=== PATIENT | female | born 1940 | race Caucasian/White ===

== ENCOUNTER 2016-05-07 07:08 | Emergency (ER) | payer OTHER ==
[2016-05-07 08:04] LABS: URINE MICRO REVIEW NEEDED? NO; URINE SOURCE CLEAN CATCH
[2016-05-07 08:13] LABS: BILIRUBIN URINE NEGATIVE (NEGATIVE); BLOOD URINE TRACE (NEGATIVE); COLOR YELLOW; GLUCOSE URINE NEGATIVE (NEGATIVE); LEUKOCYTES URINE TRACE (NEGATIVE); NITRITE URINE NEGATIVE (NEGATIVE); PH URINE 6.5; PROTEIN URINE 30 mg/dL (NEGATIVE); SP GRAVITY URINE 1.021; TURBIDITY URINE CLEAR (CLEAR); UROBILINOGEN URINE NORMAL (NORMAL)
[2016-05-07 08:14] LABS: UR EPITHELIAL CELLS <10 /HPF (<10); URINE BACTERIA NEGATIVE /HPF; URINE CULTURE NEEDED? YES
[2016-05-07 09:28] LABS: MANUAL DIFF NEEDED? NO
[2016-05-07 09:32] LABS: BASO% 0.5 % (0.0-0.8); EOS# 0.17 X1000 (0.0-0.7); EOS% 2.2 % (0.0-10.0); HEMATOCRIT 45.7 % (37.0-47.0); HEMOGLOBIN 15.1 g/dL (12.0-16.0); IMM GRAN# 0.02 X1000 (0.0-0.04); IMM GRAN% 0.3 % (0.0-0.5); LYMPH# 1.74 X1000 (1.2-3.4); LYMPH% 22.4 % (20.5-51.1); MCH 31.1 PG (27-31); MCV 94.2 FL (81-99); MONO# 0.48 X1000 (0.11-0.59); MONO% 6.2 % (1.7-9.3); MPV 11.6 FL (7.4-10.4); NEUT% 68.4 % (42.2-75.2); PLT 153 X1000 (130-400); RBC 4.85 XMIL (4.2-5.4)
[2016-05-07 09:59] LABS: ALBUMIN 4.1 g/dL (3.5-5.0); CALCIUM 9.1 mg/dL (8.8-10.2); POTASSIUM 4.1 mmol/L (3.5-5.1); TOTAL BILIRUBIN 0.69 mg/dL (0.20-1.00)
[2016-05-07] MEDS ORDERED: ZOFRAN ONE (10:56)
[2016-05-07] MEDS ORDERED: MORPHINE ONE (10:56)
[2016-05-07] MEDS ORDERED: ZOFRAN IV ONE (11:03)
[2016-05-07] MEDS ORDERED: MORPHINE IV ONE ×2 (11:03→13:34)
--- NOTE | 2016-05-07 11:46 | Diag Imaging Result Document ---
PROCEDURE NAME: CT ABD/PELVIS W/ IV CONT ONLY - 05/07/2016 CT ABDOMEN AND PELVIS WITH IV CONTRAST ONLY: Exam performed with intravenous contrast only per request of the referring provider. A dose-reduction protocol was used. COMPARISON: No comparison exam. FINDINGS: The visualized lung bases appear clear. There are no substantial abnormalities of the liver, spleen, or pancreas identified. There is a venous structure which courses adjacent to the left adrenal gland and mildly limits detail. There is no adrenal mass identified however. The gallbladder is surgically absent. There is a 1 cm stone in the left renal pelvis. There is no substantial hydronephrosis identified. There is mild thickening of the gr of the left renal pelvis which may relate to chronic inflammation or to early pyelonephritis. There is an additional 4 mm nonobstructing stone in the left kidney. There are scattered small low-density lesions in the bilateral kidneys which may represent cyst. There is no discrete solid renal mass identified. There are no substantially enlarged lymph nodes identified. There is no aortic aneurysm seen. There are atherosclerotic calcifications noted. There are lumbar spine degenerative changes also noted. There is no evidence of bowel obstruction. What appears to represent the appendix shows no obvious inflammation. There is no pericecal inflammation identified. There is colonic diverticulosis which is most extensive at the sigmoid. There is no diverticulitis identified. There is no abscess identified. There is no free air. There is no substantial free fluid. Images of the pelvis, otherwise, show postsurgical changes of hysterectomy. There is no abnormal pelvic mass or fluid collection identified. IMPRESSION: 1. 1 cm stone in left renal pelvis. No substantial hydronephrosis. Mild thickening of gr of left renal pelvis which may relate to chronic inflammation or early acute pyelonephritis. Additional 4 mm nonobstructing stone in the left kidney. 2. Small low-density lesions in the bilateral kidneys which may represent cysts. 3. No bowel obstruction. No indication of appendicitis. 4. Colonic diverticulosis. No evidence of diverticulitis. 5. No abscess. No free air. MTDD
--- NOTE | 2016-05-07 12:09 | PROVIDER DOCUMENTATION ---
HPI-General Adult - General Source: patient - History of Present Illness -Gen Adult Nature of Presenting Problems: 75 y/o female presents to the ER with complaint of left flank pain that started this am. Pt states the pain starts in the back and radiates to front. Pt denies fever, chills and chest pain. Pt does have a history of kidney stones. Location of Pain/Injury: reports: abdomen (left), back (left) Pain Radiation: reports: flank (L) Quality of Pain: reports: aching Onset/Duration: reports: this morning Timing: reports: still present Associated Symptoms: denies: chest pain, fever/chills, vomiting <Elodia Mancini - Last Filed: 05/07/16 13:37> - History of Present Illness -Gen Adult HPI Comments: No chest pain or shortness of breath, no vaginal discharge or recent abx <Dyllan Dyer - Last Filed: 05/07/16 16:58> - General Chief Complaint: Flank Pain Stated Complaint: left side rib,back pain Time Seen by Provider: 05/07/16 07:30 Allergies/Adverse Reactions: Patient Allergies Allergy/AdvReac Type Severity Reaction Status Date / Time Penicillins Allergy RASH Verified 05/07/16 07:39 Sulfa (Sulfonamide Allergy RASH Verified 05/07/16 07:39 Antibiotics) Home Medications: Home Medication List Medication Instructions Recorded Confirmed Last Taken Type Carvedilol 3.125 mg PO DAILY 05/07/16 05/07/16 05/06/16 18:00 History Hydrocodone/Acetaminophen [Vicodin 1 each PO TID #10 tablet 05/07/16 Unknown Rx 5-300 mg Tablet] Levothyroxine [Synthroid] 0.1 microgm PO DAILY 05/07/16 05/07/16 05/06/16 08:00 History Ondansetron HCl [Zofran] 4 mg PO TID #5 tablet 05/07/16 Unknown Rx Prednisone 10 mg PO BID #10 tablet 05/07/16 Unknown Rx Simvastatin 20 mg PO DAILY 05/07/16 05/07/16 05/06/16 08:00 History Valacyclovir HCl [Valacyclovir] 1,000 mg PO TID #21 tablet 05/07/16 Unknown Rx Review of Systems - Adult - REVIEW OF SYSTEMS - ADULT Constitutional: denies: chills, fever Gastrointestinal: reports: nausea. denies: diarrhea, vomiting Genitourinary: reports: flank pain (left) All Other Systems: Reviewed and Negative <Elodia Mancini - Last Filed: 05/07/16 13:37> Past History - Adult - PAST MEDICAL HISTORY-ADULT Review of Records: reports: Nursing Assessment Review, Medications Reviewed - IMMUNIZATION STATUS Childhood Immunizations: See Nurse Assessment Flu Vaccine: See Nurse Assessment <Elodia Mancini - Last Filed: 05/07/16 13:37> Physical Exam-General - CONSTITUTIONAL General Appearance: alert, mild distress - EYES Eyes: PERRL/EOMI, pink conjunctivae - HEAD, EARS, NOSE, MOUTH & THROAT HENMT: normocephalic/atraumatic, normal ENT inspection - NECK Neck: supple, normal inspection - RESPIRATORY Respiratory: no respiratory distress, no accessory muscle use - CARDIOVASCULAR Cardiovascular: normal peripheral pulses, regular rate, rhythm - MUSCULOSKELETAL Back Exam: no CVA tenderness, no vertebral tenderness Extremity: normal gait, normal inspection - SKIN Integumentary: normal color, other (herpes on back) - NEUROLOGIC Neurologic: grossly normal, no motor/sensory deficits - PSYCHIATRIC Psych/Mental Status: normal mood/affect, normal thought content, normal thought process, oriented x 3 <Elodia Mancini - Last Filed: 05/07/16 13:37> - SKIN Integumentary: zoster-like rash <Dyllan Dyer - Last Filed: 05/07/16 16:58> Progress - CT/MRI 1 CT Study: Abdomen Impression: Abnormal CT Results: 1 cm stone in left pelvis, 4 mm nonobstructing stone in left kidney <Elodia Mancini - Last Filed: 05/07/16 13:37> - PLAN OF CARE/RESULTS Progress/Plan/Lab Results: Patient revisited multiple times while in Ed Made aware of laboratory results, CT imaging and clinical diagnosis. All questions answered and patient feeling better after medications. <Dyllan Dyer - Last Filed: 05/07/16 16:58> Departure <Elodia Mancini - Last Filed: 05/07/16 13:37> <Dyllan Dyer - Last Filed: 05/07/16 16:58> - Departure DIAGNOSIS: Renal colic on left side, Kidney stone on left side, Jaqueline Disposition: HOME 01 Condition: Good Additional Instructions: ED Follow Up Instructions: You have been treated by a care provider in the Emergency Department. These instructions are being provided to you so you can have an understanding of how to care for yourself upon discharge. Upon discharge from the Emergency Department, you are responsible for making arrangements for follow-up care by a physician of your choice. Take all prescribed medications as directed. Return to the Emergency Department immediately for any new or worsening symptoms. You may call the Physician Referral phone number at [phone] to obtain a list of Physicians who are taking new patients. Prescriptions: Prednisone 10 mg PO BID #10 tablet Valacyclovir HCl [Valacyclovir] 1,000 mg PO TID #21 tablet Hydrocodone/Acetaminophen [Vicodin 5-300 mg Tablet] 1 each PO TID #10 tablet Ondansetron HCl [Zofran] 4 mg PO TID #5 tablet Referrals: Pao Ross MD [Primary Care Provider] - Instructions: Shingles, [id number], Kidney Stones, [id number] Attestation - Scribe Verification/Attestation Scribe:: Elodai Mancini Acting as Scribe for:: Dyllan Dyer Scribe documention review:: This chart was documented by a scribe and accurately reflects the service the provider performed and the decisions made by the provider. <Elodia Mancini - Last Filed: 05/07/16 13:37> - Scribe Verification/Attestation Scribe:: Elodia Mancini Scribe documention review:: This chart was documented by a scribe and accurately reflects the service the provider performed and the decisions made by the provider. <Dyllan Dyer - Last Filed: 05/07/16 16:58> Physician Attestation - Physician Attestation I, the provider, attest to the following statement:: Dyllan Dyer Physician documentation Attestation:: This documentation recorded by the scribe accurately reflects the service I personally performed and the decisions made by me. <Dyllan Dyer - Last Filed: 05/07/16 16:58>
[2016-05-07 13:31] VITALS: BP 172/69
== END 2016-05-07 13:41 | disposition home or self-care (01) ==
LOC: ED 07:08
DX: N20.0 Calculus of kidney (principal); B02.9 Zoster without complications; K57.90 Diverticulosis of intestine, part unspecified, without perforation or abscess without bleeding; R10.9 Unspecified abdominal pain; M54.9 Dorsalgia, unspecified; R07.81 Pleurodynia; R11.0 Nausea; Z79.899 Other long term (current) drug therapy; Z87.442 Personal history of urinary calculi
CPT/HCPCS: 74177; 80053; 81001; 83690; 85025; 87077; 87088; 87186; 96374; J2270; J2405; Q9967

== ENCOUNTER 2016-05-13 09:06 | Emergency (ER) | payer OTHER ==
[2016-05-13 10:40] LABS: URINE SOURCE CATH
[2016-05-13 11:04] LABS: BILIRUBIN URINE NEGATIVE (NEGATIVE); BLOOD URINE MODERATE (NEGATIVE); CLARITY CLEAR (CLEAR); COLOR YELLOW; GLUCOSE URINE NEGATIVE (NEGATIVE); LEUKOCYTES URINE SMALL (NEGATIVE); NITRITE URINE NEGATIVE (NEGATIVE); PH URINE 5.5; PROTEIN URINE TRACE mg/dL (NEGATIVE); SP GRAVITY URINE 1.025; UROBILINOGEN URINE 0.2 EU/dL (0.2-1.0)
[2016-05-13 11:05] LABS: URINE CULTURE NEEDED? YES; URINE EPITHELIAL CELLS >10 /HPF (<10); URINE WBC TNTC /HPF (<10)
--- NOTE | 2016-05-13 11:24 | Diag Imaging Result Document ---
PROCEDURE NAME: KUB ABDOMEN - 05/13/2016 ABDOMEN SINGLE-VIEW: FINDINGS: There is stool throughout the colon. The bowel loops are not dilated. The gallbladder has been removed. There is [id number] scoliosis with degenerative spine changes. No organomegaly. There is a mid abdominal calcification on the left shown to be a renal pelvic stone on a recent CT. IMPRESSION: 1. Constipation. 2. Left renal stone. [facility]
--- NOTE | 2016-05-13 11:43 | PROVIDER DOCUMENTATION ---
HPI-Rash/Wound/ReCheck - General Source: patient, family - History of Present Illness-Dermatology Quality: reports: painful Severity: reports: moderate Onset/Duration: reports: 6 days ago Timing: reports: still present Locality of Occurance: Home Similar Symptoms Previously?: Yes Recently seen or treated by another doctor?: Yes - Recheck Treated days ago.: 6 Antibiotics given: prescription Symptoms since procedure:: reports: pain - General Chief Complaint: Return/Recheck Stated Complaint: RECHECK Time Seen by Provider: 05/13/16 11:00 Allergies/Adverse Reactions: Allergies Allergy/AdvReac Type Severity Reaction Status Date / Time Penicillins Allergy RASH Verified 05/13/16 11:21 Sulfa (Sulfonamide Allergy RASH Verified 05/13/16 11:21 Antibiotics) Home Medications: Home Medication List Medication Instructions Recorded Confirmed Last Taken Type Carvedilol 3.125 mg PO DAILY 05/07/16 05/13/16 05/13/16 History Hydrocodone/Acetaminophen [Vicodin 1 each PO TID #10 tablet 05/07/16 05/13/16 Rx 5-300 mg Tablet] Levothyroxine [Synthroid] 0.1 microgm PO DAILY 05/07/16 05/13/16 05/13/16 History Ondansetron HCl [Zofran] 4 mg PO TID #5 tablet 05/07/16 05/13/16 05/13/16 Rx Prednisone 10 mg PO BID #10 tablet 05/07/16 05/13/16 05/13/16 Rx Simvastatin 20 mg PO DAILY 05/07/16 05/13/16 05/13/16 History Valacyclovir HCl [Valacyclovir] 1,000 mg PO TID #21 tablet 05/07/16 05/13/1612/20 Rx Gabapentin E.r. [Gralise] 300 mg PO DAILY #14 tablet 05/13/16 Unknown Rx Oxycodone HCl/Acetaminophen 1 each PO Q4-6H PRN PRN #30 tablet 05/13/16 Unknown Rx [Percocet 7.5-325 mg Tablet] Tamsulosin [Flomax] 0.4 mg PO DAILY #14 capsule 05/13/16 Unknown Rx - History of Present Illness-Dermatology Nature of Presenting Problem: Pt is a 75 yof that presents to er with cc of recheck. Pt reports she was seen on 05/07/16 and was diagnosed with shingles and renal pelvic stone and sent home on medications. Pt reports that she continues to hurt with the pain medications and that she is all most out and wont have enough to make it through the weekend. Pt reports she couldn't tell if she was hurting from the shingles or the stone. (Pa Ross) Review of Systems - Adult - REVIEW OF SYSTEMS - ADULT Constitutional: denies: chills, fever, fatique Eyes: reports: no symptoms reported Ears, Nose, Mouth & Throat: denies: ear pain, sinus problem, throat pain Cardiovascular: denies: chest pain, irregular heart rate, orthopnea, syncope Respiratory: reports: no symptoms reported Gastrointestinal: reports: abdominal pain. denies: diarrhea, nausea, vomiting Genitourinary: reports: flank pain. denies: dysuria, discharge, frequent UTI's , hematuria, hesitency, urinary retention, urgency Musculoskeletal: reports: no symptoms reported Integumentary: reports: no symptoms reported Neurological: reports: no symptoms reported Psychiatric: reports: no symptoms reported Endocrine: reports: no symptoms reported Hematologic/Lymphatic: reports: no symptoms reported Allergic/Immunologic: reports: no symptoms reported All Other Systems: Reviewed and Negative Past History - Adult - PAST MEDICAL HISTORY-ADULT Review of Records: reports: Nursing Assessment Review, Medications Reviewed Major Childhood Illnesses: reports: denies history Cardiovascular: reports: HTN, hyperlipidemia - IMMUNIZATION STATUS Childhood Immunizations: See Nurse Assessment Flu Vaccine: See Nurse Assessment - SOCIAL HISTORY Smoking: denies Substance Use: none/never Physical Exam-General - PHYSICAL EXAM-ADULT Initial Vital Signs Reviewed: Yes - CONSTITUTIONAL General Appearance: appears well, alert, mild distress - EYES Eyes: PERRL/EOMI - HEAD, EARS, NOSE, MOUTH & THROAT HENMT: moist mucous membranes, TMs normal, pharynx normal - RESPIRATORY Respiratory: chest non-tender, lungs clear, normal breath sounds, no pleuratic chest pain, no respiratory distress, no accessory muscle use - CARDIOVASCULAR Cardiovascular: regular rate, rhythm, no edema, no gallop, no JVD, no murmur - GASTROINTESTINAL (ABDOMEN) Abdominal Exam: normal bowel sounds, soft, no organomegaly, no pulsatile mass, tenderness (ttp llq) - MUSCULOSKELETAL Back Exam: other (left lower back shingles rash noted radiating to left mid abd) Extremity: normal range of motion, non-tender - SKIN Integumentary: normal color, normal turgor, warm/dry, rash (shingles rash left lower back to mid abd) - PSYCHIATRIC Psych/Mental Status: normal mood/affect, normal thought content, normal thought process, oriented x 3 Progress - XRAY 1 XRAY: Bilateral XRAY Study: Chest Impression: Abnormal (constipation; left renal pelvic stone) - PLAN OF CARE/RESULTS Progress/Plan/Lab Results: Orders Category Date Time Status KUB ABDOMEN [RAD] Stat Exams 05/13/16 09:32 Draft URINE CULTURE [RM] Routine Lab 05/13/16 11:07 Received Vital Signs - 24 hr 05/13/16 09:25 Temperature 98.1 F Pulse Rate 74 Respiratory 18 Rate Blood Pressure 164/72 O2 Sat by Pulse 99 Oximetry Laboratory Tests 05/13/16 05/13/16 09:36 10:28 Urine Source CATH Cancelled Urine Color YELLOW Cancelled Urine Clarity CLEAR Urine Turbidity Cancelled Urine pH 5.5 Cancelled Ur Specific [place] 1.025 Cancelled Urine Protein TRACE A Cancelled Ur Glucose (Stick) Cancelled Urine Ketones NEGATIVE Ur Ketones (Stick) Cancelled Urine Blood MODERATE A Cancelled Urine Nitrite NEGATIVE Cancelled Urine Bilirubin NEGATIVE Cancelled Urine Urobilinogen 0.2 Urobilinogen Dipstick Cancelled Urine Leukocytes Cancelled Urine WBC (Auto) Cancelled Urine RBC (Auto) Cancelled U Epithel Cells (Auto) Cancelled Urine Bacteria (Auto) Cancelled Urine Microscopic RBC 10-20 A Urine WBC SMALL A Urine Microscopic WBC TNTC A Ur Epithelial Cells >10 A Urine Bacteria 4+ Urine Glucose NEGATIVE (Pa Ross) Departure - Departure Time of Disposition Order: 11:47 Certified Medical Emergency: Emergent - Departure DIAGNOSIS: Kidney stone on left side Shingles Qualifiers: Herpes zoster complications: without complications Qualified Code(s): B02.9 - Zoster without complications Disposition: HOME 01 Condition: Stable Additional Instructions: Follow up with Urologist ED Follow Up Instructions: You have been treated by a care provider in the Emergency Department. These instructions are being provided to you so you can have an understanding of how to care for yourself upon discharge. Upon discharge from the Emergency Department, you are responsible for making arrangements for follow-up care by a physician of your choice. Take all prescribed medications as directed. Return to the Emergency Department immediately for any new or worsening symptoms. You may call the Physician Referral phone number at [phone] to obtain a list of Physicians who are taking new patients. Prescriptions: Tamsulosin [Flomax] 0.4 mg PO DAILY #14 capsule Gabapentin E.r. [Gralise] 300 mg PO DAILY #14 tablet Oxycodone HCl/Acetaminophen [Percocet 7.5-325 mg Tablet] 1 each PO Q4-6H PRN PRN #30 tablet PRN Reason: Pain Referrals: Pao Ross MD [Primary Care Provider] - Ash Rebolledo MD [STAFF PHYSICIAN] - Instructions: Contact Precautions, [id number], Shingles, Iycr-wv-Hnwa Attestation - Scribe Verification/Attestation Scribe:: Pa Ross Acting as Scribe for:: Jordan Beckham Scribe documention review:: This chart was documented by a scribe and accurately reflects the service the provider performed and the decisions made by the provider. Physician Attestation
[2016-05-13 11:59] VITALS: BP 129/56
[2016-05-13] MEDS ORDERED: NORCO-10 PO ONE (12:12)
[2016-05-13] MEDS ORDERED: NORCO-10 ONE (12:13)
== END 2016-05-13 12:27 | disposition home or self-care (01) ==
LOC: ED 09:06
DX: B02.9 Zoster without complications (principal); N20.0 Calculus of kidney; R10.9 Unspecified abdominal pain; R10.814 Left lower quadrant abdominal tenderness; R21 Rash and other nonspecific skin eruption; I10 Essential (primary) hypertension; E78.5 Hyperlipidemia, unspecified; Z79.899 Other long term (current) drug therapy
CPT/HCPCS: 74000; 81001; 87077; 87088; 87186; 99284

== ENCOUNTER 2016-05-19 06:56 | Day surgery (SDC) | payer OTHER ==
[2016-05-18 15:09] LABS: HEMATOCRIT 45.3 % (37.0-47.0); HEMOGLOBIN 14.6 g/dL (12.0-16.0); MCH 31.6 PG (27-31); MCHC 32.2 g/dL (33-37); MCV 98.1 FL (81-99); MPV 11.4 FL (7.4-10.4); RBC 4.62 XMIL (4.2-5.4)
--- NOTE | 2016-05-18 15:11 | EKG Report ---
Test Performed on : 05/18/2016 2:47:10 PM Test Reason : PAT Blood Pressure : / mmHG Vent. Rate : 069 BPM Atrial Rate : 069 BPM P-R Int : 172 ms QRS Dur : 084 ms QT Int : 406 ms P-R-T Axes : 062 067 073 degrees QTc Int : 435 ms Normal sinus rhythm. Cannot rule out Anterior infarct , age undetermined Abnormal ECG No previous ECGs available Confirmed by Jolene MARTINEZ, Dante Mccray ([id number]) on 05/18/2016 3:25:42 PM
[2016-05-18 15:20] LABS: CALCIUM 9.4 mg/dL (8.8-10.2); POTASSIUM 3.9 mmol/L (3.5-5.1)
[2016-05-18 15:50] LABS: INR 0.99; PROTIME 10.1 Seconds (9.2-11.7); PTT 23.6 Seconds (22.0-36.0)
[2016-05-19] MEDS ORDERED: PEPCID ONE (07:25)
[2016-05-19] MEDS ORDERED: LEVAQUIN 500 MG/D5W 100 ML ONE (07:25)
[2016-05-19] MEDS ORDERED: LR 1,000 ML ONE (07:25)
[2016-05-19] MEDS ORDERED: LOPRESSOR PO ONE (08:15)
[2016-05-19] MEDS ORDERED: MORPHINE ONE ×2 (09:37→10:01)
[2016-05-19] MEDS: PHENERGAN ONE ×2 (09:55→10:03)
[2016-05-19] MEDS ORDERED: ZOFRAN ONE (10:20)
[2016-05-19] MEDS ORDERED: XYLOCAINE-MPF 2% ONE (10:20)
[2016-05-19] MEDS ORDERED: DECADRON ONE (10:20)
[2016-05-19] MEDS ORDERED: MANNITOL ONE (10:20)
--- NOTE | 2016-05-19 10:36 | OPERATIVE NOTE ---
PROCEDURE DATE: 05/19/2016 SURGEON: Rj Mancini MD PREOPERATIVE DIAGNOSIS: Left renal pelvic stone. POSTOPERATIVE DIAGNOSIS: Left renal pelvic stone. PROCEDURE PERFORMED: Extracorporeal shockwave lithotripsy of left renal pelvic stone. ANESTHESIA: General via laryngeal mask. FINDINGS: An approximate 12 mm left renal pelvic stone. INDICATIONS FOR PROCEDURE: This 75-year-old female with history of renolithiasis developed severe left flank pain that was intermittent. Evaluation revealed a large left renal pelvic stone. DESCRIPTION OF PROCEDURE: After informed consent was obtained from the patient and her receiving IV antibiotics, she was taken the main OR, placed in supine position. General anesthesia via laryngeal mask was achieved. She was then placed in a proper position for left extracorporeal shockwave lithotripsy. The stone received 3000 shocks, starting at energy level 1, ramping to energy level 7, at a frequency of 90 per minute. She was given 12.5 g of mannitol at the start. At completion, the stone appeared well fragmented. She tolerated the procedure well. ESTIMATED BLOOD LOSS: Was 0. TOTAL FLUOROSCOPY TIME: Was 4 minutes and 10 seconds. She was taken to recovery room in good condition.
[2016-05-19] MEDS ORDERED: FLOMAX ONE (10:47)
[2016-05-19 11:20] VITALS: BP 152/85
[2016-05-19] MEDS ORDERED: DIPRIVAN 1% ONE (12:32)
== END 2016-05-19 11:18 | disposition home or self-care (01) ==
LOC: OPS 06:56
PROVIDERS: ATTEND Urology
DX: N20.0 Calculus of kidney (principal)
CPT/HCPCS: 80048; 85027; 85610; 85730; 93005; 93010; J1100; J2150; J2270; J2405; J2550; J7120

== ENCOUNTER 2016-09-07 06:27 | Inpatient (IN) ==
[2016-09-05 09:59] LABS: MANUAL DIFF NEEDED? NO; URINE MICRO REVIEW NEEDED? NO; URINE SOURCE CLEAN CATCH
[2016-09-05 10:01] LABS: BASO% 0.4 % (0.0-0.8); EOS# 0.14 X1000 (0.0-0.7); EOS% 2.5 % (0.0-10.0); HEMATOCRIT 41.7 % (37.0-47.0); HEMOGLOBIN 13.8 g/dL (12.0-16.0); LYMPH# 1.55 X1000 (1.2-3.4); LYMPH% 27.7 % (20.5-51.1); MCH 31.8 PG (27-31); MCHC 33.1 g/dL (33-37); MCV 96.1 FL (81-99); MONO# 0.43 X1000 (0.11-0.59); MONO% 7.7 % (1.7-9.3); MPV 11.4 FL (7.4-10.4); NEUT% 61.7 % (42.2-75.2); PLT 150 X1000 (130-400); RBC 4.34 XMIL (4.2-5.4)
[2016-09-05 10:04] LABS: BILIRUBIN URINE NEGATIVE (NEGATIVE); BLOOD URINE NEGATIVE (NEGATIVE); COLOR YELLOW; GLUCOSE URINE NEGATIVE (NEGATIVE); LEUKOCYTES URINE NEGATIVE (NEGATIVE); NITRITE URINE NEGATIVE (NEGATIVE); PROTEIN URINE NEGATIVE (NEGATIVE); SP GRAVITY URINE 1.019; TURBIDITY URINE CLEAR (CLEAR); UR EPITHELIAL CELLS <10 /HPF (<10); URINE BACTERIA 1+ /HPF; URINE RBC <10 /HPF (<10); URINE WBC <10 /HPF (<10); UROBILINOGEN URINE NORMAL (NORMAL)
[2016-09-05 10:12] LABS: INR 0.96; PTT 26.4 Seconds (22.0-36.0)
[2016-09-05 10:31] LABS: AGAP 11; BUN 10 mg/dL (8-22); CHLORIDE 108 mmol/L (98-107); COSMO 286; POTASSIUM 3.8 mmol/L (3.5-5.1); SODIUM 144 mmol/L (136-145); TCO2 25 mmol/L (25-35)
[2016-09-07] MEDS ORDERED: REGLAN ONE (06:44)
[2016-09-07] MEDS ORDERED: PEPCID ONE (06:44)
[2016-09-07] MEDS ORDERED: COLACE ONE (06:44)
[2016-09-07] MEDS ORDERED: VANCOMYCIN 1 GM/NS 1 GM/250 ML IVPB ONE (06:45)
[2016-09-07] MEDS ORDERED: LYRICA ONE (06:45)
[2016-09-07] MEDS ORDERED: LR 1,000 ML ONE (06:45)
[2016-09-07] MEDS ORDERED: XYLOCAINE-MPF 2% ONE (06:48)
[2016-09-07] MEDS ORDERED: ROBINUL ONE ×2 (06:48→08:50)
[2016-09-07] MEDS ORDERED: QUELICIN (DOSE) ONE (06:48)
[2016-09-07] MEDS ORDERED: DIPRIVAN 1% ONE (06:48)
[2016-09-07] MEDS ORDERED: SENSORCAINE 0.25%/EPI 1:200,000 ONE (06:49)
[2016-09-07] MEDS ORDERED: DURAMORPH ONE (06:49)
[2016-09-07] MEDS ORDERED: TORADOL ONE (06:49)
[2016-09-07] MEDS ORDERED: CYKLOKAPRON 1,000 MG/NS 1,000 MG/100 ML IVPB ONE (06:49)
[2016-09-07] MEDS ORDERED: SODIUM CHLORIDE 0.9% ONE (06:49)
[2016-09-07] MEDS ORDERED: EXPAREL 1.3% ONE (06:50)
[2016-09-07] MEDS ORDERED: NEOSPORIN G.U. IRRIGANT ONE (06:50)
[2016-09-07] MEDS ORDERED: STERILE WATER INJ. ONE (08:43)
[2016-09-07] MEDS ORDERED: NORCURON ONE (08:43)
[2016-09-07] MEDS ORDERED: FENTANYL ONE ×2 (08:46→09:06)
[2016-09-07] MEDS ORDERED: DECADRON ONE (08:50)
[2016-09-07] MEDS ORDERED: ZOFRAN ONE (08:50)
[2016-09-07] MEDS ORDERED: OFIRMEV 1000 MG/ISOTONIC SOLN 1,000 MG/100 ML BOTTLE ONE (08:59)
[2016-09-07] MEDS ORDERED: NEOSTIGMINE ONE (08:59)
[2016-09-07 09:12] LABS: URINE MICRO REVIEW NEEDED? NO; URINE SOURCE CATH
[2016-09-07 09:16] LABS: BILIRUBIN URINE NEGATIVE (NEGATIVE); BLOOD URINE NEGATIVE (NEGATIVE); COLOR YELLOW; GLUCOSE URINE NEGATIVE (NEGATIVE); LEUKOCYTES URINE NEGATIVE (NEGATIVE); NITRITE URINE NEGATIVE (NEGATIVE); PROTEIN URINE NEGATIVE (NEGATIVE); SP GRAVITY URINE 1.013; TURBIDITY URINE CLEAR (CLEAR); UROBILINOGEN URINE NORMAL (NORMAL)
[2016-09-07 09:17] LABS: UR EPITHELIAL CELLS <10 /HPF (<10); URINE BACTERIA NEGATIVE /HPF; URINE RBC <10 /HPF (<10); URINE WBC <10 /HPF (<10)
[2016-09-07] MEDS ORDERED: NS 1,000 ML ONE (11:11)
--- NOTE | 2016-09-07 11:16 | Diag Imaging Result Doc PS360 ---
EXAM: SHOULDER 1 VIEW RIGHT INDICATION: r tsa TECHNIQUE: One view COMPARISON: None. FINDINGS: There has been a recent right shoulder arthroplasty. The arthroplasty hardware is in the expected position. There is no evidence of periprosthetic fracture. Surrounding soft tissues are essentially unremarkable. IMPRESSION: Satisfactory postoperative right shoulder. Electronically signed by Luis M Flowers 09/07/2016 11:14 AM
[2016-09-07] MEDS ORDERED: MORPHINE IV PRN (12:14)
[2016-09-07] MEDS ORDERED: MILK OF MAGNESIA PO PRN (12:14)
[2016-09-07] MEDS ORDERED: OXY IR PO PRN (12:14)
[2016-09-07] MEDS ORDERED: ZOFRAN PO PRN (12:14)
[2016-09-07] MEDS ORDERED: NS 1,000 ML IV SCH (13:00)
[2016-09-07] MEDS ORDERED: CYKLOKAPRON 1,000 MG in NS 100 ML IV ONE (15:00)
[2016-09-07] MEDS: TYLENOL PO SCH ×3 (15:27→21:03)
[2016-09-07] MEDS: ZOCOR PO SCH (17:01)
[2016-09-07] MEDS: SYNTHROID PO SCH (17:01)
[2016-09-07] MEDS: CENTRUM SILVER PO SCH (17:02)
[2016-09-07] MEDS: COREG PO SCH (17:02)
[2016-09-07] MEDS ORDERED: VANCOMYCIN 1 GM/NS 1 GM/250 ML IVPB IV ONE (20:00)
[2016-09-07] MEDS: PERIDEX MT SCH (21:03)
[2016-09-07] MEDS: COLACE PO SCH (21:04)
[2016-09-08] MEDS: TYLENOL PO SCH ×2 (02:50→09:45)
[2016-09-08 06:09] LABS: HEMATOCRIT 36.1 % (37.0-47.0); HEMOGLOBIN 11.6 g/dL (12.0-16.0)
--- NOTE | 2016-09-08 06:38 | PROGRESS NOTE ---
DATE: 09/08/2016 SUBJECTIVE: The patient is a pleasant 75-year-old female who is 1 day status post right reverse shoulder arthroplasty. The patient rested well through the night, and has no complaints this morning. OBJECTIVE: On physical exam, patient's wound looks good. There are no signs or symptoms of infection. She is neurovascularly throughout, has good manager fleet strength. Her hemoglobin is 11.6, hematocrit is 36.1. IMPRESSIONS: Postoperative day #1, status post right reverse shoulder arthroplasty. PLAN: At this point, will Hep-Lock her IV and discontinue her Rizvi. We will also change her dressing. Will plan on discharging home, and patient will arrange for home physical therapy. cc: Ajit Appiah MD
[2016-09-08 06:46] LABS: AGAP 12; BUN 13 mg/dL (8-22); CALCIUM 8.1 mg/dL (8.8-10.2); CHLORIDE 106 mmol/L (98-107); COSMO 282; POTASSIUM 4.3 mmol/L (3.5-5.1); SODIUM 140 mmol/L (136-145); TCO2 22 mmol/L (25-35)
[2016-09-08 07:25] VITALS: BP 127/54
[2016-09-08] MEDS ORDERED: PEPCID PO SCH (09:00)
--- NOTE | 2016-09-08 09:27 | OPERATIVE NOTE ---
PROCEDURE DATE: 09/07/2016 PREOPERATIVE DIAGNOSIS: Right glenohumeral arthritis. POSTOPERATIVE DIAGNOSIS: Right glenohumeral arthritis. PROCEDURE: Right reversal shoulder arthroplasty. SURGEON: Dr. Appiah. SENIOR ANALYTIC CONSULTANT: ROCKY Zaidi SECOND ENVIRONMENTAL RESOURCE SPECIALIST: Felipe Mays RN BRIEF HISTORY: The patient is a 75 year old female with a chronic history of pain in the right shoulder. X-rays revealed significant degenerative arthritis and a recommendation for a reverse total shoulder was offered. Operative risks, benefits were explained Including the risks of anesthesia, , bleeding, infection, failure to relieve pain, postoperative stiffness, nerve injury, blood clots, and other imponderables. All questions were answered. Patient and family wished to proceed with surgery. DETAILS OF OPERATION: The patient was taken to the operating room and placed supine on the operating table. Once adequate anesthesia was obtained, the patient placed in semi-[place] beach- chair position. The right shoulder was subsequently prepped and draped in the usual sterile fashion. A deltopectoral incision was then made with a skin knife. Hemostasis was obtained using electrocautery. The deltopectoral interval was then developed and the cephalic vein was retracted laterally with the deltoid. Wooten retractors were then placed. The clavipectoral fascia was elevated. The subscapularis tendon was then identified and stay sutures placed. Subscapularis tendon was released 1 cm medial to its insertion. The shoulder was then dislocated anteriorly. There appeared to be significant degenerative arthritis. Further release of the superior aspect of the rotator cuff was performed as well as the biceps tendon. A starting reamer was then passed and sequential reaming was then conducted up to a size 10 mm. An intramedullary guide with the proximal humeral cutting block was pinned in position. The humeral head was then resected. After this had been performed, the humeral head was then resected. A protective disk was then placed. Attention then turned to the glenoid. Circumferential dissection was then performed with a deep knife. A guide was then placed in position. The guide pin was then placed. Reaming was then conducted. The central hole was then dilated. The wound was copiously irrigated with antibiotic pulsatile lavage. A standard metaglene was then impacted in position. Two locking screws and 1 nonlocking screw was placed and had good fixation. After this had been performed, the wound was copiously irrigated with antibiotic pulsatile lavage. A size 38 eccentric Glenosphere was then placed. Attention then turned to the proximal humerus where an intramedullary guide was then placed in position. The proximal humerus was reamed. The wound was copiously irrigated with antibiotic pulsatile lavage. A size 10 press -fit stem was impacted in position and had a good fit. Trial cup size was then placed. A 42 + 6 humeral cup had excellent stability and range of motion. The trial cup was then removed. Copious irrigation then performed once again with antibiotic pulsatile lavage. This was followed by + 38 + 6 humeral cup was impacted on the stem. The shoulder was reduced, carried through range of motion and had excellent stability and range of motion. The wound was copiously once again with antibiotic pulsatile lavage. #2 FiberWire was then used to repair the subscapularis tendon. There appeared to be good repair. Exparel was placed in deep soft tissue, as well as subcutaneous tissue. The wound was copiously once again and this was followed by 2-0 Vicryl to repair the subcutaneous tissue and skin rosy. Benzoin and Steri-Strips were applied. Adaptic, sterile 4 x 4's, ABD pad, and tape from the right shoulder, followed by sterile mobilizer all counts correct. Patient tolerated the procedure well and was transferred to the recovery room in stable condition. cc: MD NIA Florentino
[2016-09-08] MEDS: COREG PO SCH (09:43)
[2016-09-08] MEDS: CENTRUM SILVER PO SCH (09:45)
[2016-09-08] MEDS: SYNTHROID PO SCH (09:45)
[2016-09-08] MEDS: COLACE PO SCH (09:45)
[2016-09-08] MEDS: ZOCOR PO SCH (09:45)
[2016-09-08] MEDS: PERIDEX MT SCH (09:45)
== END 2016-09-08 10:29 | disposition home health service (06) ==
LOC: SURHOLD 06:27 → 4N 08:26
PROVIDERS: ADMIT Orthopaedic Surgery Adult Reconstructive Orthopaedic Surgery; ATTEND Orthopaedic Surgery Adult Reconstructive Orthopaedic Surgery